=== PATIENT | male | born 1980 ===

== ENCOUNTER 2020-07-24 20:51 | Emergency (ER) | payer MEDICAID ==
[~2020-07-24] VITALS: Ht 170.2 cm; Wt 83.9 kg
[2020-07-24 21:27] VITALS: BP 151/109
--- NOTE | 2020-07-24 21:50 | NUR ---
ERMD EVALUATING PATIENT IN TENT.
--- NOTE | 2020-07-24 22:05 | NUR ---
LAB IN TENT COLLECTING BLOOD LABS.
[2020-07-24 22:32] LABS: HEMATOCRIT 51.4 % (36-52); HEMOGLOBIN 17.6 g/dL (12.0-18.0); MEAN CORPUSCULAR HEMOGLOBIN 31 pg (27-31); MEAN CORPUSCULAR HGB CONC 34 g/dL (33-37); MEAN CORPUSCULAR VOLUME 90.3 fL (80-94); PLATELET COUNT (AUTO) 91 K/uL (140-450); RED BLOOD CELL COUNT(AUTO) 5.69 MIL/uL (4.20-6.10); RED CELL DISTRIBUTION WIDTH 15.4 % (11.6-13.7); WHITE BLOOD COUNT (AUTO) 10.1 K/uL (4.8-10.8)
[2020-07-24 22:44] LABS: ALBUMIN 4.3 g/dL (3.4-5.0); ANION GAP 15.1 (8-16); CARBON DIOXIDE 27.5 mmol/L (21-32); CREATININE 0.7 mg/dL (0.6-1.3); POTASSIUM 3.6 mmol/L (3.5-5.1); TOTAL BILIRUBIN 0.8 mg/dL (0.0-1.0)
[2020-07-24 22:55] LABS: EOSINOPHILS % (MANUAL) 1 % (0-4); LYMPHOCYTES % (MANUAL) 33 % (20-46); MONOCYTES % (MANUAL) 7 % (5-12)
--- NOTE | 2020-07-25 00:45 | NUR ---
PATIENT RESTING IN TENT AND RESPONSIVE TO VERBAL STIMULI. RESPIRATIONS ARE EVEN AND UNLABORED. SKIN IS WARM AND DRY TO TOUCH.
--- NOTE | 2020-07-25 00:52 | NUR ---
CALLED TRADE FACILITATOR FOR BUS PASS, HOMELESS MEAL PACK, AND HOMELESS RECOURSES.
[2020-07-25 01:40] VITALS: BP 132/89
--- NOTE | 2020-07-25 01:40 | NUR ---
Patient discharged with v/s stable. Written and verbal after care instructions given and explained. Patient alert, oriented and verbalized understanding of instructions. Ambulatory with steady gait. All questions addressed prior to discharge. ID band removed. Patient advised to follow up with PMD. Rx of OMEPRAZOLE 20 MG given. Patient educated on indication of medication including possible reaction and side effects. Opportunity to ask questions provided and answered.
== END 2020-07-25 01:40 | disposition home or self-care (01) ==
LOC: MED 20:51
DX: K29.60 Other gastritis without bleeding (principal); R53.1 Weakness; M79.10 Myalgia, unspecified site; K21.9 Gastro-esophageal reflux disease without esophagitis
CPT/HCPCS: 36415; 80053; 85025; 99283